=== PATIENT | female | born 1995 | race Caucasian/White ===

== ENCOUNTER 2022-08-14 14:01 | Outpatient (CLI) | payer BC, SELFPAY ==
[2022-08-14 14:31] VITALS: BP 99/76; PULSE 79
[2022-08-14 14:46] VITALS: BP 133/84; PULSE 77
[2022-08-14 15:00] LABS: Basophils Percent Auto 0.2 % (0.2-1.2); Eosinophils Absolute Auto 0.1 K/mm3 (0-0.3); Eosinophils Percent Auto 0.8 % (0-4.4); Hematocrit 33.2 % (37.0-47.0); Hemoglobin 10.7 g/dL (12.0-15.0); Immature Granulocyte Absolute 0.05 K/mm3 (0.00-0.031); Immature Granulocyte Percent A 0.6 % (0-0.5); Lymphocytes Absolute Auto 1.24 K/mm3 (0.9-3.2); Lymphocytes Percent Auto 14.7 % (18.3-44.2); Mean Corpuscular HGB Conc 32.2 g/dl (32-36); Mean Corpuscular Hemoglobin 27.2 pg (26-34); Mean Corpuscular Volume 84.5 fl (80-100); Mean Platelet Volume 12.8 fl (7.4-10.4); Monocytes Absolute Auto 0.5 K/mm3 (0.1-0.6); Monocytes Percent Auto 6.3 % (2.6-8.5); Neutrophils Absolute Auto 6.6 K/mm3 (1.3-6.7); Neutrophils Percent Auto 77.4 % (45.5-73.1); Nucleated Red Blood Cells Perc 0.2 % (0.0-0.2); Platelet Count Result 143 k/mm3 (150-375); Red Blood Count 3.93 M/mm3 (4.2-5.4); Red Cell Distribution Width 13.5 % (11.5-14.5); White Blood Count 8.5 K/mm3 (4.5-10.0)
[2022-08-14 15:09] LABS: Appearance Urine Clear (Clear); Bacteria Urine None Seen /hpf; Bilirubin Urine Negative (Negative); Blood Urine 3+ (Negative); Color Urine Yellow (Yellow); Creatinine Urine 36.7 mg/dL; Glucose Urine UA Negative (Negative); Ketones Urine Negative (Negative); Leukocyte Esterase Ur Negative LEU/UL (NEGATIVE); Nitrate Urine Negative (Negative); Non Pathogenic Casts 0-2; Protein Urine Negative (Negative); Specific Grav Ur 1.008 (1.001-1.035); Squamous Epithelial Cell Urine None seen /hpf (Few); Total Protein Urine Random 22 mg/dL; Urobilinogen Urine 0.2 mg/dL (<2.0); WBC Urine 0-5 /hpf (0-3)
[2022-08-14 15:14] LABS: Alanine Aminotransferase 20 U/L (6-35); Albumin Level 3.6 g/dL (3.5-5.1); Alkaline Phosphatase 134 U/L (38-126); Anion Gap 7 mmol/L (8-16); Aspartate Amino Transferase 25 U/L (14-36); Bilirubin,Total 0.4 mg/dL (0.2-1.3); Blood Urea Nitrogen 13 mg/dL (7-17); Calcium 8.9 mg/dL (8.4-10.2); Carbon Dioxide 23 mmol/L (22-30); Chloride 103 mmol/L (98-107); Estimated Glomerular Filt Rate > 60; Glucose 93 mg/dL (65-110); Potassium 3.9 mmol/L (3.4-5.0); Sodium 133 mmol/L (137-145); Uric Acid 3.1 mg/dL (2.5-7.5)
[2022-08-14 15:26] LABS: Add Urine Microscopic? YES
[2022-08-14 17:10] VITALS: BP 133/84
--- NOTE | 2022-08-15 04:53 | P.PNOB_ITS ---
OB - Triage/Final Diagnosis Visit Information Date of evaluation: 08/14/22 Reason for evaluation: other Comments/Additional reasons for admission: I have assessed the risk for this patient, Susan Harris, and determined that she would benefit from observation care. Evaluation Laboratory results: Laboratory Tests 08/14/22 14:48 WBC 8.5 RBC 3.93 L Hgb 10.7 L Hct 33.2 L MCV 84.5 MCH 27.2 MCHC 32.2 RDW 13.5 Plt Count 143 L MPV 12.8 H Immature Gran % (Auto) 0.6 H Neut % (Auto) 77.4 H Lymph % (Auto) 14.7 L [place] % (Auto) 6.3 Eos % (Auto) 0.8 Baso % (Auto) 0.2 Lymph # (Auto) 1.24 [place] # (Auto) 0.5 Eos # (Auto) 0.1 Baso # (Auto) 0.0 Abs Immat Gran (auto) 0.05 H Absolute Neuts (auto) 6.6 Absolute Nucleated RBC 0.0 Nucleated RBC % 0.2 Sodium 133 L Potassium 3.9 Chloride 103 Carbon Dioxide 23 Anion Gap 7 L BUN 13 Creatinine 0.60 L Estim Creat Clear Calc Not Reportable Estimated GFR > 60 Glucose 93 Uric Acid 3.1 Calcium 8.9 Total Bilirubin 0.4 AST 25 ALT 20 Alkaline Phosphatase 134 H Total Protein 6.0 L Albumin 3.6 Urine Color Yellow Urine Appearance Clear Urine pH 7.0 Ur Specific [place] 1.008 Urine Protein Negative Urine Glucose (UA) Negative Urine Ketones Negative Ur Blood (Man) 3+ H Urine Nitrate Negative Urine Bilirubin Negative Urine Urobilinogen 0.2 Ur Leukocyte Esterase Negative Urine RBC 3-5 H Urine WBC 0-5 Ur Squamous Epith Cells None seen Urine Bacteria None seen Urine Casts 0-2 U Random Total Protein 22 Urine Creatinine 36.7 Protein/Creat Ratio 2 0.60 H Vital signs: Vital Signs - 24 hr 08/14/22 14:31 08/14/22 14:46 08/14/22 17:10 Pulse Rate 79 77 Blood Pressure 99/76 L 133/84 Blood Pressure [Left Arm] 133/84
--- NOTE | 2022-08-17 08:16 | PM.OBPNVD ---
OB - PN: Subj Subjective Date/time seen: 08/17/22 08:16 Patient comments: no complaints and pain well controlled baby status: doing well OB - PN: Obj Data Labs 08/14/22 14:48 08/14/22 14:48 OB - PN A/P Plan day: 1 Plan: routine care Time Spent With Patient Time: Total time spent is greater than 50% in coordination of care (as documented) at patient's floor/unit and/or counseling patient: Time with patient: less than 15 minutes Exam Const: General: cooperative, healthy appearing and comfortable Nutritional Appearance: average body habitus Orientation/consciousness: oriented to person, oriented to place and oriented to time Resp: Effort & Inspection: normal respiratory effort Cardio: Rate: regular rate Rhythm: regular rhythm Heart sounds: S1 normal heart sound present and S2 normal heart sound present GI: Inspection: normal to inspection (fundus firm)
== END 2022-08-14 16:00 | disposition home or self-care (01) ==
LOC: ANHOBOP 14:17 → ANHLDR 14:18
PROVIDERS: Visit Provider Obstetrics & Gynecology
DX: O13.9 Gestational [pregnancy-induced] hypertension without significant proteinuria, unspecified trimester (principal); Z3A.00 Weeks of gestation of pregnancy not specified
CPT/HCPCS: 36415; 59025; 80053; 81001; 82570; 84156; 84550; 85025; 87086; 99199

== ENCOUNTER 2022-08-16 04:58 | Inpatient (IN) | payer BC, SELFPAY ==
[2022-08-16] VITALS (180 sets, daily range): BP systolic 88–143; BP diastolic 48–108; PULSE 65–160; RESP 16–18; TEMP 36.6–37.3; O2SAT 89–100; BMI 28.3
--- NOTE | 2022-08-16 04:58 | LDADM ---
This patient, Susan Harris, was admitted to Labor/Delivery/Recovery 107 on 08/16/22 at 04:58. Plans for labor, pain management and were discussed with patient. Patient/family oriented to hospital policies and general routines including ID bracelet, bed and alarms, visiting hours, pain management, procedures, bathroom and other care routines, personal items, smoking policy, room service/diet and guest tray routines, security routines, and visiting hours. Patient/Family are encouraged to report perceived risks to care and to ask questions if they do not understand what they are told or what they should do. See OBIX for further documentation.
--- NOTE | 2022-08-16 05:23 | PM.IMHP ---
H&P: HPI History of Present Illness Date/Time: 08/16/22 05:23 Chief Complaint: induction of labor at term with gestational hypertension Narrative: this is a 27-year-old primigravida at 38 weeks gestation for induction of labor secondary to elevated blood pressures. She has early ultrasound confirming dates. PIH labs admitted okay but blood pressure has relatively high. COUNT INCLUDES [facility] Family History Family History Other No pertinent family history Social History Social History Substance use: never Spiritual care concerns: No Meds Home Medications and Allergies Home Medications Medication Instructions Recorded Confirmed Type vit no.95-ferrous 1 tablet PO DAILY 08/09/22 08/09/22 History fumarate 28 mg-folic acid 800 mcg tablet () Allergies Allergy/AdvReac Type Severity Reaction Status Date / Time No Known Allergies Allergy Verified 08/09/22 13:59 Exam Const: General: cooperative, healthy appearing, comfortable and well groomed Nutritional Appearance: average body habitus Orientation/consciousness: oriented to person, oriented to place and oriented to time HENMT: Head: normal to inspection Resp: Effort & Inspection: normal respiratory effort Cardio: Rate: regular rate Rhythm: regular rhythm Heart sounds: S1 normal heart sound present and S2 normal heart sound present GI: Inspection: normal to inspection ( Gravid soft uterus) : External Female Exam: normal external appearance Speculum Exam - Vagina: normal appearance of the vagina Speculum Exam - Cervix: normal appearance of the cervix ( cervix 2/50/2. FHTs reassuring) Assessment and Plan Assessment and plan (1) Term : Code(s): Z34.90 - Encounter for supervision of normal , unspecified, unspecified trimester Status: Acute (2) Gestational hypertension: Code(s): O13.9 - Gestational [-induced] hypertension without significant proteinuria, unspecified trimester Status: Acute Plan medical induction labor. Spontaneous vaginal delivery she has an epidural candidate. will recheck PIH labs
--- NOTE | 2022-08-16 06:13 | P.PNAN_ITS ---
Anes - Eval Pre Procedure Procedure: labor epidural Date/Time: 08/16/22 06:13 Surgeon: edy Preop Diagnosis: pain during labor Pre Op Diagnosis: Induction of Labor Patient Data Age: 27 Gender: F Height: Weight: Last Vital Signs Pulse 94 08/16/22 06:01 BP 143/85 H 08/16/22 06:01 Allergies Allergy/AdvReac Type Severity Reaction Status Date / Time No Known Allergies Allergy Verified 08/09/22 13:59 Home Medications Medication Instructions Recorded Confirmed Type vit no.95-ferrous 1 tablet PO DAILY 08/09/22 08/09/22 History fumarate 28 mg-folic acid 800 mcg tablet () Patient hx anesthesia problems: none Family hx anesthesia problems: none Results Review: All pre-operative results and documents have been reviewed as part of the pre- operative evaluation. [facility] Family History Family History Other No pertinent family history Social History Social History Substance use: never Spiritual care concerns: No Exam Day of Procedure 08/16/22 06:13
[2022-08-16 06:20] LABS: Basophils Percent Auto 0.4 % (0.2-1.2); Eosinophils Absolute Auto 0.1 K/mm3 (0-0.3); Eosinophils Percent Auto 1.2 % (0-4.4); Hematocrit 32.3 % (37.0-47.0); Hemoglobin 10.4 g/dL (12.0-15.0); Immature Granulocyte Absolute 0.04 K/mm3 (0.00-0.031); Immature Granulocyte Percent A 0.5 % (0-0.5); Lymphocytes Absolute Auto 1.18 K/mm3 (0.9-3.2); Lymphocytes Percent Auto 15.2 % (18.3-44.2); Mean Corpuscular HGB Conc 32.2 g/dl (32-36); Mean Corpuscular Volume 83.9 fl (80-100); Mean Platelet Volume 13.8 fl (7.4-10.4); Monocytes Absolute Auto 0.6 K/mm3 (0.1-0.6); Monocytes Percent Auto 7.2 % (2.6-8.5); Neutrophils Absolute Auto 5.8 K/mm3 (1.3-6.7); Neutrophils Percent Auto 75.5 % (45.5-73.1); Nucleated Red Blood Cells Perc 0.3 % (0.0-0.2); Platelet Count Result 157 k/mm3 (150-375); Red Blood Count 3.85 M/mm3 (4.2-5.4); Red Cell Distribution Width 13.7 % (11.5-14.5); White Blood Count 7.7 K/mm3 (4.5-10.0)
[2022-08-16] MEDS: LACTATED RINGERS 1,000 ML 125 ML IV CONT (06:21)
[2022-08-16] MEDS: AMPICILLIN 2 GM/NS 100 ML 2 GM/100 ML BAG IVPB (06:22)
[2022-08-16] MEDS: OXYTOCIN 30 UNITS/NS 500 ML 30 UNITS/500 ML BAG 6 UNITS IV CONT (06:25)
[2022-08-16 06:34] LABS: Alanine Aminotransferase 19 U/L (6-35); Albumin Level 3.4 g/dL (3.5-5.1); Alkaline Phosphatase 126 U/L (38-126); Anion Gap 5 mmol/L (8-16); Aspartate Amino Transferase 23 U/L (14-36); Bilirubin,Total 0.3 mg/dL (0.2-1.3); Blood Urea Nitrogen 13 mg/dL (7-17); Carbon Dioxide 22 mmol/L (22-30); Chloride 107 mmol/L (98-107); Estimated Glomerular Filt Rate > 60; Glucose 97 mg/dL (65-110); Potassium 3.9 mmol/L (3.4-5.0); Sodium 134 mmol/L (137-145)
[2022-08-16 06:40] LABS: Uric Acid 2.8 mg/dL (2.5-7.5)
[2022-08-16] MEDS: ONDANSETRON INJ 4 MG/2 ML VIAL IV PUSH ×2 (06:45→13:45)
[2022-08-16 07:55] LABS: Rapid Plasma Reagin Non-Reactive (NonReactive)
[2022-08-16] MEDS: LACTATED RINGERS 1,000 ML 999 ML IV CONT ×3 (08:00→15:16)
[2022-08-16] MEDS: AMPICILLIN 1 GM/NS 50 ML 1 GM/50 ML BAG IVPB ×2 (09:52→13:46)
--- NOTE | 2022-08-16 12:08 | PM.OBPNLAB ---
Pain Control Date/time seen: 08/16/22 12:08 Pain control: tolerating well and epidural Pelvic Exam Dilation (cm): 5 Effacement (%): 100 station: -1 Amniotic membrane status: Leaking
--- NOTE | 2022-08-16 16:01 | PM.OBPNLAB ---
Pain Control Date/time seen: 08/16/22 16:01 Pain control: tolerating well and epidural Pelvic Exam Dilation (cm): 10 Effacement (%): 100 station: -1 Amniotic membrane status: Leaking
--- NOTE | 2022-08-16 16:42 | PM.OBPRVD ---
OB - Delivery Note Procedure Delivery date: 08/16/22 Procedure: mil Events: Gestational Hypertension Induction method: AROM Delivery augmentation: Pitocin Delivery monitor: External FHT and Internal Uterine Route of delivery: Episiotomy description: None Laceration Description: Perineal - 2nd Degree Delivery repair: vicryl Specimen: No Quantitative Blood Loss (ml): 89 Anesthesia type: Epidural Disposition: Floor [place] Baby Date of : 08/16/22 Time of : 16:27 Weeks of gestation at delivery: 38 gender: Male Weight (pounds): 8 Weight (ounces): 9 presentation: vertex position: Right Occiput Anterior Placenta delivery description: Spontaneous Cord Vessel Description: 3 Vessels and Delayed Cord Clamping score one minute: 8 score five minutes: 9
--- NOTE | 2022-08-16 16:45 | PM.DS ---
DS: Admitting Diagnosis Discharge Date 06/18/22 Admitting Diagnosis Gestational hypertension/ term / DS: Discharge Diagnosis Discharge Diagnosis (1) Gestational hypertension: Code(s): O13.9 - Gestational [-induced] hypertension without significant proteinuria, unspecified trimester Status: Acute (2) Term : Code(s): Z34.90 - Encounter for supervision of normal , unspecified, unspecified trimester Status: Acute DS: Summary Hospital Course Reason for hospitalization: patient was admitted for induction of labor secondary to elevated blood pressures at 38 weeks Hospital Course: she underwent successful spontaneous vaginal delivery 08/16/2022. Her hospital course was unremarkable. She remained afebrile. She was up, voiding the difficulty, ambulating, generally without complaints. Time Spent with Patient Time attestation: Total time spent providing and/or coordinating discharge services: Exam Const: General: cooperative, healthy appearing, comfortable and well groomed Nutritional Appearance: average body habitus Orientation/consciousness: oriented to person, oriented to place and oriented to time Resp: Effort & Inspection: normal respiratory effort Cardio: Rate: regular rate Rhythm: regular rhythm Heart sounds: S1 normal heart sound present and S2 normal heart sound present GI: Inspection: normal to inspection ( Fundus firm below umbilicus) DS: Data Data Completed and Pending Labs on day of discharge: Labs from last 24 hours 08/16/22 05:44 WBC 7.7 RBC 3.85 L Hgb 10.4 L Hct 32.3 L MCV 83.9 MCH 27.0 MCHC 32.2 RDW 13.7 Plt Count 157 MPV 13.8 H Immature Gran % (Auto) 0.5 Neut % (Auto) 75.5 H Lymph % (Auto) 15.2 L [place] % (Auto) 7.2 Eos % (Auto) 1.2 Baso % (Auto) 0.4 Lymph # (Auto) 1.18 [place] # (Auto) 0.6 Eos # (Auto) 0.1 Baso # (Auto) 0.0 Abs Immat Gran (auto) 0.04 H Absolute Neuts (auto) 5.8 Absolute Nucleated RBC 0.0 Nucleated RBC % 0.3 H % Immature Plt Fraction 20.0 H Sodium 134 L Potassium 3.9 Chloride 107 Carbon Dioxide 22 Anion Gap 5 L BUN 13 Creatinine 0.60 L Estim Creat Clear Calc Not Reportable Estimated GFR > 60 Glucose 97 Uric Acid 2.8 Calcium 9.0 Total Bilirubin 0.3 AST 23 ALT 19 Alkaline Phosphatase 126 Total Protein 6.0 L Albumin 3.4 L RPR Non-reactive Blood Type B Positive Antibody Screen Negative Discharge Plan Discharge Attending physician on discharge: Mati Rose Discharging Clinician: Mati Rose Patient Disposition: Home, Self-Care Activity: may shower and pelvic rest Diet: heart healthy Wound Care Instructions: follow printed instructions Stand Alone Forms: General Discharge Information Follow-up/Referrals: Mati Rose MD [Physician] - 6 Weeks Discharge Medications: New ibuprofen 600 mg tablet 600 mg PO Q6H PRN (Reason: cramps) Qty: 30 0RF ferrous sulfate 325 mg (65 mg iron) tablet 325 mg PO DAILY Qty: 30 0RF Continued PNV cmb#95-ferrous fumarate-FA [] 28 mg iron- 800 mcg Tablet 1 tablet PO DAILY Date of admission: 08/16/22 04:58 Primary Care Provider: PHYSICIAN,CLOTH WEIGHER Admitting Provider: Mati Rose Attending physician on admission: Mati Rose Condition: Stable
[2022-08-16] MEDS: OXYTOCIN 30 UNITS/NS 500 ML 30 UNITS/500 ML BAG 125 UNITS IV CONT (17:02)
[2022-08-16] MEDS: IBUPROFEN 600 MG TABLET PO (18:15)
--- NOTE | 2022-08-16 19:39 | PC.NURSE ---
Patient transferred to post room #286 via wheelchair. Support person present. Oriented to unit, room, information board, rooming in, admission packet and security measures. Patient verbalizes understanding.
[2022-08-16] MEDS: ACETAMINOPHEN 325 MG TABLET 650 MG PO (23:33)
[2022-08-17] MEDS: IBUPROFEN 600 MG TABLET PO ×3 (04:18→16:48)
[2022-08-17 04:54] LABS: Hematocrit 29.4 % (37.0-47.0); Hemoglobin 9.4 g/dL (12.0-15.0)
--- NOTE | 2022-08-17 07:24 | PM.OBPNVD ---
OB - PN: Subj Subjective Date/time seen: 08/17/22 07:24 Patient comments: no complaints and pain well controlled baby status: doing well OB - PN: Obj Data Labs 08/17/22 04:21 08/16/22 05:44 Labs: Laboratory Results - last 24 hr 08/16/22 08/17/22 05:44 04:21 Hgb 9.4 L Hct 29.4 L RPR Non-reactive Blood Type B Positive Antibody Screen Negative OB - PN A/P Plan day: 1 Plan: routine care Time Spent With Patient Time: Total time spent is greater than 50% in coordination of care (as documented) at patient's floor/unit and/or counseling patient: Time with patient: less than 15 minutes Exam Const: General: cooperative, healthy appearing and comfortable Nutritional Appearance: average body habitus Orientation/consciousness: oriented to person, oriented to place and oriented to time HENMT: Head: normal to inspection Resp: Effort & Inspection: normal respiratory effort Cardio: Rate: regular rate Rhythm: regular rhythm Heart sounds: S1 normal heart sound present and S2 normal heart sound present GI: Inspection: normal to inspection (Fundus firm below the umbilicus)
[2022-08-17 08:45] VITALS: BP 115/65; PULSE 81; RESP 18; TEMP 36.8; O2SAT 100
--- NOTE | 2022-08-17 09:52 | WPDANLDPN2 ---
Anes-Prog Note L&D Date/Time: 08/17/22 09:52 Comfortable throughout: labor and delivery Neuraxial method: epidural Epidural/Spinal procedure site: clean & non-tender Neuro status: Neuro function grossly intact. Cardiovascular status: normal Respiratory status: normal Airway patency: baseline Mental status: baseline Post-Op hydration status: normal Vital Signs: Last Vital Signs Temp 36.7 C 08/16/22 23:30 Pulse 82 08/16/22 23:30 Resp 16 08/16/22 23:30 BP 111/63 08/16/22 23:30 Pulse Ox 97 08/16/22 23:30 O2 Del Method Room Air 08/16/22 23:30 Pain score (VAS): 04/10 I/O: Intake & Output 08/16/22 08/17/22 08/17/22 23:59 07:59 15:59 Intake Total 990 Output Total 989 Balance 1 Post-procedural complaints: none Patient feedback: Patient satisfied with anesthetic care.
[2022-08-17] MEDS: POLYSACCHARIDE IRON COMPLEX 150 MG CAPSULE PO ×2 (10:40→16:49)
[2022-08-17] MEDS: MULTIVIT/MIN/PREN/FOL AC/IRON TABLET 1 TAB PO (10:40)
[2022-08-17] MEDS: DOCUSATE SODIUM 100 MG CAPSULE PO ×2 (10:40→16:48)
[2022-08-17 11:47] VITALS: BP 114/62; PULSE 81; RESP 16; TEMP 36.9; O2SAT 99
[2022-08-17 20:19] VITALS: BP 139/75; PULSE 76; RESP 18; TEMP 36.5; O2SAT 96
[2022-08-18 08:00] VITALS: BP 119/84; PULSE 82; RESP 16; TEMP 36.8; O2SAT 99
[2022-08-18] MEDS: POLYSACCHARIDE IRON COMPLEX 150 MG CAPSULE PO (08:38)
[2022-08-18] MEDS: MULTIVIT/MIN/PREN/FOL AC/IRON TABLET 1 TAB PO (08:39)
[2022-08-18] MEDS: DOCUSATE SODIUM 100 MG CAPSULE PO (08:39)
--- NOTE | 2022-08-18 08:40 | PM.OBPNVD ---
OB - PN: Subj Subjective Date/time seen: 08/18/22 08:40 Narrative: Pain OK. Would like to go home. OB - PN: Obj Data Labs 08/17/22 04:21 08/16/22 05:44 OB - PN A/P Plan Comments: A: PPD#2, doing well. P: Home to f/u 6 weeks. Exam Psych: Other: AVSS ABD soft, nontender, fundus firm EXT nontender
[2022-08-18] MEDS: WITCH HAZEL 40 PADS 1 PAD TOPICAL (08:43)
[2022-08-20 08:16] VITALS: BP 129/83; PULSE 85; RESP 18; TEMP 37.1; O2SAT 100
== END 2022-08-18 12:15 | disposition home or self-care (01) | DRG 807 ==
LOC: ANHLDR 16:48 → ANHOB2 08-17 08:56 → ANHLDR 08-21 07:16 → ANHOB2 08-21 07:16
PROVIDERS: Admitting Provider Obstetrics & Gynecology; Visit Provider Obstetrics & Gynecology
DX: O13.4 Gestational [pregnancy-induced] hypertension without significant proteinuria, complicating childbirth (principal); Z37.0 Single live birth; O70.1 Second degree perineal laceration during delivery; O99.824 Streptococcus B carrier state complicating childbirth; Z3A.38 38 weeks gestation of pregnancy
CPT/HCPCS: 36415; 80053; 84550; 85014; 85018; 85025; 85055; 86592; 86850; 86900; 86901; A9270; J0290; J2405; J2590; J2795; J7120

== ENCOUNTER 2024-12-21 21:28 | Emergency (ER) | payer BC, SELFPAY ==
--- NOTE | ~2024-12-21 | XR_ITS ---
Examination: XR chest 2V Clinical History: fever Comparison: None Technique: PA and Lateral Findings: Cardiomediastinal silhouette normal size and configuration. Lungs clear. No acute bony abnormality. IMPRESSION: 1. No acute cardiopulmonary findings. Reviewed, dictated and finalized at location R.
[2024-12-21 21:30] VITALS: BP 140/81; PULSE 102; RESP 18; TEMP 36.8; O2SAT 100
--- OUTSIDE RECORDS SUMMARY | 2024-12-21 21:30 | XMS_ITS | Clinical Summary ---
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 Name Role Phone No, Physician Primary Care Provider [phone] Allergies No known active allergies Medications sertraline (ZOLOFT) 25 mg tabletIndicatio ns:Anxiety with Depression Take 1 tablet (25 mg total) by mouth early childhood teacher before breakfast Active multivitamin tabletIndicatio ns:Vitamin Deficiency Prevention Take 1 tablet by mouth early childhood teacher before breakfast Active ALPRAZolam (Xanax) 0.5 mg tablet Take 1 tablet (0.5 mg total) by mouth as needed for anxiety (PRN pre-procedure) 2 tablet Active Active Problems Problem Noted Date Diagnosed Date 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 Operating Room [address] [address] [place] [id number] Pricilla Mohan CRNA 12/14/2024 11:01 AM CDT - 12/14/2024 11:46 AM CDT Surgery [facility] Operating Room [address] [address] [place] [id number] Savanah Renteria MD awake KTP laser 12/14/2024 9:44 AM CDT - 12/14/2024 11:44 AM CDT Hospital Encounter [facility] Operating Room [address] [address] [place] [id number] Savanah Renteria MD Recurrent respiratory papillomatosis (Primary Dx) Discharge Disposition: Discharge to home or self care 11/19/2024 Orders Only [facility] Operating Room [address] [address] [place] [id number] Savanah Renteria MD 11/19/2024 Telephone [facility] [address] [place] [id number] Alexey LaverneMS carey 11/18/2024 11:00 AM CDT Therapy [facility]ol[facility]ology [address] [place] [address] Medical [address] [place] [phone] Cheyanne Pacheco SLP Laryngeal papillomatosis (Primary Dx); Anterior glottic web 11/18/2024 11:00 AM CDT Office Visit [facility] ENT [address] [place] [address] Medical [address] [place] [phone] Savanah Renteria MD Laryngeal papillomatosis (Primary Dx); Anterior glottic web from Last 3 Months Surgical History Surgery Date Site/Laterality Comments ADENOIDECTOMY 04/01/2004 - 03/31/2005 tonsils CHOLECYSTECTOMY 04/01/2016 - 03/31/2017 LARYNGOSCOPY multiple every 6months to 1 year. Medical History Medical History Date Comments PONV (postoperative nausea and vomiting) Family History Medical History Relation Name Comments Diabetes Paternal Grandmother Hamida Caicedo Anesthesia problems Neg Hx Relation Name Status Comments Paternal Grandmother Hamida Caicedo Social History Tobacco Use Types Packs/Day Years Used Date Smoking Tobacco: Never Passive Smoke Exposure: Never Smokeless Tobacco: Never Tobacco Cessation:Counseling Given: Not Answered Alcohol Use Standard Drinks/Week Comments Yes 1 (1 standard drink = 0.6 oz pur e alcohol) AUDIT-C Answer Date Recorded Q1: How often do you have a drink containing alc ohol? 2-4 times a month 12/14/2024 Q2: How many drinks containi ng alcohol do you have on a typical day when you are drinking? 1 or 2 12/14/2024 Q3: How often do you have si x or more drinks on one occasion? Never 12/14/2024 Personal Safety Answer Date Recorded Have you ever been in or are you currently in a harmful physical or emotional relationship or is someone making you feel afraid or unsafe? Denies 12/14/2024 Comments No Sex and Gender Information Value Date Recorded Sex Assigned at Not on file Legal Sex Female 8:56 PM [employer] Gender Identity Female 04/22/2024 6:57 AM [employer] Sexual Orientation Not on file Obstetrics History Last Filed Vital Signs Vital Sign Reading Time Taken Comments Blood Pressure 132/82 12/14/2024 11:30 AM CDT Pulse 82 12/14/2024 11:25 AM CDT Temperature 36.5 C (97.7 F) 12/14/2024 11:30 AM CDT Respiratory Rate 0 12/14/2024 11:30 AM CDT Oxygen Saturation 94% 12/14/2024 11:25 AM CDT Inhaled Oxygen Concentration - - Weight 68 kg (150 lb) 12/14/2024 9:50 AM CDT Height 170.2 cm (5' 7) 12/14/2024 9:50 AM CDT Body Mass Index 23.49 12/14/2024 9:50 AM CDT Plan of Treatment Health Maintenance Due Date Last Done Comments Cervical Cancer Screening 1993 Depression Screening 1993 DTaP/Tdap/Td Vaccine (1 - Tdap) 2004 Varicella Vaccines (1 of 2 - 13+ 2-dose series) 2006 Hepatitis B Screening 2011 Regular Well Visit/Exam 18-64 2011 HPV Vaccines (1 - 3-dose SCD M series) 2020 Influenza Vaccine (#1) 2024 Hepatitis C Screening Completed 01/07/2014 Pneumococcal vaccine <65 Aged Out No longer eligible based on patient's age to complete this topic Goals Goal Patient Goal Type Associated Problems Recent Progress Patient-Stated? Author Autogenera narendra Goal Care Plan Autogenerated Problem No Keri Calderon RN Procedures Procedure Name Priority Date/Time Associated Diagnosis Comments LASER KTP 12/14/2024 11:12 AM CDT Recurrent respiratory papillomatosis Case Notes KTP laser, channeled scope Special Needs KTP laser, channeled scope SERUM HEPATITIS PANEL Routine 01/07/2014 7:12 AM CDT from Last 3 Months or Most Recently Relevant to Health Maintenance Results * Serum Hepatitis panel (01/07/2014 7:12 AM CDT) HBV surface ag Negative NEG HISTO RICAL RESULTS HCV ab Negative NEG HISTORICAL RESULTS Comment: Interpretive Data If confirmation is required, call Laboratory Customer Service to request sample to be sent to [facility] for Hepatitis C Virus (HCV) RNA Detection and Quantitation by Real-Time Reverse Plasma Center Technician-PCR (RT-PCR). Current interpretive data was last revised on 2011 HBV core ab, IgM Negative NEG HIS TORICAL RESULTS Comment: Interpretive Data If test is reported as Equivocal, new sample should be drawn for testing. Current interpretive data was last revised on 2007. HAV ab, IgM Negative NEG HISTORIC AL RESULTS Comment: Interpretive Data If test is reported as Equivocal, new sample should be drawn in two weeks for testing. Current interpretive data was last revised on 2007. 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
[2024-12-21 21:34] VITALS: RESP 17; O2SAT 98
[2024-12-21 21:35] VITALS: PULSE 75; RESP 17; TEMP 37.2; O2SAT 98
[2024-12-21 22:42] LABS: BEDSIDEPREGUCG Negative (Negative)
[2024-12-21 22:54] LABS: Hematocrit 37.1 % (37.0-47.0); Hemoglobin 12.7 g/dL (12.0-15.0); Immature Granulocyte Percent A 0.2 % (0-0.5); Lymphocytes Absolute Auto 1.07 K/mm3 (0.9-3.2); Mean Corpuscular HGB Conc 34.2 g/dl (32-36); Mean Corpuscular Hemoglobin 29.2 pg (26-34); Mean Corpuscular Volume 85.3 fl (80-100); Nucleated Red Blood Cells Absolute Auto 0.000 K/mm3 (0.0-0.012); Nucleated Red Blood Cells Perc 0.0 % (0.0-0.2); Platelet Count Result 210 k/mm3 (150-375); Red Blood Count 4.35 M/mm3 (4.2-5.4); White Blood Count 5.3 K/mm3 (4.5-10.0)
[2024-12-21 23:02] LABS: Add Urine Microscopic? YES; Appearance Urine Cloudy (Clear); Glucose Urine UA Negative (Negative); Leukocyte Esterase Ur 1+ LEU/UL (Negative); Nitrate Urine Negative (Negative); Non Pathogenic Casts 0-2; Specific Grav Ur 1.025 (1.001-1.035)
[2024-12-21 23:06] LABS: Alanine Aminotransferase 31 U/L (6-35); Albumin Level 4.3 g/dL (3.5-5.1); Alkaline Phosphatase 100 U/L (38-126); Anion Gap 9 mmol/L (4-12); Aspartate Amino Transferase 32 U/L (14-36); Bilirubin,Total 0.4 mg/dL (0.2-1.3); Blood Urea Nitrogen 13 mg/dL (7-17); Calcium 9.0 mg/dL (8.4-10.2); Carbon Dioxide 24 mmol/L (22-30); Chloride 104 mmol/L (98-107); Estimated CRCL calculation 100 ml/min; Estimated Glomerular Filt Rate > 60; Glucose 127 mg/dL (65-110); Potassium 3.5 mmol/L (3.4-5.0); Sodium 137 mmol/L (137-145); Total Protein 7.5 g/dL (6.3-8.2)
[2024-12-21 23:33] LABS: Influenza A QL RT-PCR Negative (Negative); Influenza B QL RT-PCR Negative (Negative); RSV RNA, RT-PCR Negative (Negative); SARS-CoV-2 RNA PCR Negative (Negative)
--- NOTE | 2024-12-21 23:46 | ED_ITS ---
HPI - Fever General Chief Complaint: Fever Stated Complaint: fever starting Time Seen by Provider: 12/21/24 22:21 Source: patient Mode of arrival: ambulatory Limitations: no limitations History of Present Illness HPI Narrative: This is a 29-year-old female that presents emergency department for fevers. Reports last Saturday she had a laser procedure for vocal cord polyps. Reports having low-grade fevers since. She had a fever of 101 today which concerned her and prompted her to be seen. Denies cough, congestion, sore throat, abdominal pain, vomiting, diarrhea. Related Data Home Medications ?Medication ?Instructions ?Recorded ?Confirmed ?Last Taken ?Type vit no.95-ferrous 1 tablet PO DAILY 08/09/22 08/16/22 08/15/22 History fumarate 28 mg-folic acid 800 mcg tablet () Allergies Allergy/AdvReac Type Severity Reaction Status Date / Time No Known Allergies Allergy Verified 12/21/24 21:33 Review of Systems 2 Review of Systems: All systems reviewed & are unremarkable except as noted in HPI and below PMFSH Family History Family History Other No pertinent family history Social History Social History Smoking status: Never smoker Second hand tobacco smoke exposure: No Substance use: never Lack of Transportation: No Lack of Food: Never True Current Housing: I Have Housing Concerned About Future Housing: No Difficulty Paying Gas/Electric Bills: No Difficulty Paying for Meds: No Currently Unemployed: No Education: High School Diploma/GED Difficulty w/ Childcare or Family Care: No Spiritual care concerns: No Exam 2 Narrative: GENERAL: Well-appearing, well-nourished, and in no acute distress. HEAD: Normocephalic, atraumatic. EYES: EOMI. ENT: Nares clear, no rhinorrhea or epistaxis. Mucous membranes moist. Oropharynx without tonsillar hypertrophy exudate or other lesions. Bilateral TMs pearly floyd non-bulging NECK: Supple. No adenopathy or masses. CHEST: Clear to auscultation. No respiratory distress. No wheezes rales or rhonchi HEART: Regular rate and rhythm. No murmur heard. Normal peripheral pulses. EXTREMITIES: Normal range of motion. No edema. SKIN: Warm, dry, no rash. NEURO: No focal deficits. Alert and oriented x3. PSYCH: Normal mood and affect Course Vital Signs Vital signs: Vital Signs Temperature 98.2 F 12/21/24 21:30 Pulse Rate 102 H 12/21/24 21:30 Respiratory Rate 18 12/21/24 21:30 Blood Pressure 140/81 12/21/24 21:30 Pulse Oximetry 100 12/21/24 21:30 Oxygen Delivery Room Air 12/21/24 21:30 Temperature 99.0 F 12/21/24 21:35 Pulse Rate 75 12/21/24 21:35 Respiratory Rate 17 12/21/24 21:35 Blood Pressure 140/81 12/21/24 21:30 Pulse Oximetry 98 12/21/24 21:35 Oxygen Delivery Room Air 12/21/24 21:30 MDM - Fever MDM Narrative Medical decision making narrative: Patient presents to the emergency department for fevers since a recent laser procedure for vocal cord polyps. She is afebrile in the ER and nontoxic appearing. Mildly tachycardic upon arrival, this normalized without intervention. Cbc without leukocytosis. Metabolic panel without concerning findings. Influenza, RSV and COVID screens are negative. Chest x-ray without acute cardiopulmonary abnormality. Urine with evidence of infection. This will be sent for culture. Patient will be started on oral antibiotics. She is to follow up with primary provider. She was given warnings to return to the ER Differential Diagnosis Differential diagnosis: Likely fever of unknown origin, community acquired pneumonia, pyelonephritis, viral infection and influenza Lab Data Attestation: I reviewed the patient's lab results. 12/21/24 22:37 12/21/24 22:37 Labs: Lab Results 12/21/24 12/21/24 Range/Units 22:37 22:40 WBC 5.3 (4.5-10.0) K/mm3 RBC 4.35 (4.2-5.4) M/mm3 Hgb 12.7 D (12.0-15.0) g/dL Hct 37.1 (37.0-47.0) % MCV 85.3 (80-100) fl MCH 29.2 (26-34) pg MCHC 34.2 (32-36) g/dl RDW 11.4 L (11.5-14.5) % Plt Count 210 (150-375) k/mm3 MPV 10.1 (7.4-10.4) fl Immature Gran % (Auto) 0.2 (0-0.5) % Neut % (Auto) 69.0 (45.5-73.1) % Lymph % (Auto) 20.3 (18.3-44.2) % [place] % (Auto) 9.7 H (2.6-8.5) % Eos % (Auto) 0.2 (0-4.4) % Baso % (Auto) 0.6 (0.2-1.2) % Lymph # (Auto) 1.07 (0.9-3.2) K/mm3 [place] # (Auto) 0.5 (0.1-0.6) K/mm3 Eos # (Auto) 0.0 (0-0.3) K/mm3 Baso # (Auto) 0.0 (0.0-0.1) K/mm3 Abs Immat Gran (auto) 0.01 (0.00-0.031) K/mm3 Absolute Neuts (auto) 3.7 (1.3-6.7) K/mm3 Absolute Nucleated RBC 0.000 (0.0-0.012) K/mm3 Nucleated RBC % 0.0 (0.0-0.2) % Sodium 137 (137-145) mmol/L Potassium 3.5 (3.4-5.0) mmol/L Chloride 104 (98-107) mmol/L Carbon Dioxide 24 (22-30) mmol/L Anion Gap 9 (4-12) mmol/L BUN 13 (7-17) mg/dL Creatinine 0.68 L (0.7-1.0) mg/dL Estim Creat Clear Calc 100 ml/min Estimated GFR > 60 (59 - ) Glucose 127 H (65-110) mg/dL Calcium 9.0 (8.4-10.2) mg/dL Total Bilirubin 0.4 (0.2-1.3) mg/dL AST 32 (14-36) U/L ALT 31 (6-35) U/L Alkaline Phosphatase 100 (38-126) U/L Total Protein 7.5 (6.3-8.2) g/dL Albumin 4.3 (3.5-5.1) g/dL Urine Color Yellow (Yellow) Urine Appearance Cloudy H (Clear) Urine pH 6.5 (5.0-9.0) Ur Specific [place] 1.025 (1.001-1.035) Urine Protein Negative (Negative) mg/dL Urine Glucose (UA) Negative (Negative) mg/dL Urine Ketones Negative (Negative) mg/dL Ur Blood (Man) Negative (Negative) Urine Nitrate Negative (Negative) Urine Bilirubin Negative (Negative) Urine Urobilinogen 1.0 (<2.0) mg/dL Leukocyte Esterase Rfl 1+ H (Negative) ONIEL/UL Urine RBC 0-2 (0-2) /hpf Urine WBC 11-20 H (0-3) /hpf Ur Squamous Epith Cells Moderate (Few) /hpf Urine Bacteria 3+ H /hpf Urine Casts 0-2 POC Urine HCG, Qual Negative (Negative) Influenza A (RT-PCR) Negative (Negative) Influenza B (RT-PCR) Negative (Negative) RSV (RT-PCR) Negative (Negative) SARS-CoV-2 RNA (RT-PCR) Negative (Negative) Imaging Data My impression: Chest x-ray: No acute cardiopulmonary abnormality Critical Care Time Critical Care Time Critical Care Time: No Discharge Plan Discharge Clinical Impression: Acute UTI Fever Qualifiers: Fever type: unspecified Qualified Code(s): R50.9 - Fever, unspecified Patient Disposition: Home Condition: Stable Instructions: Antibiotic Form, Urinary Tract Infection in Women (ED) Additional Instructions: Return to the emergency department if you experience fever >101, chest pain, shortness of breath, abdominal pain with nausea and vomiting, you are unable to keep down liquids or solids, or any other symptoms that are concerning to you. Tylenol or Ibuprofen as needed for pain/fever. Take oral antibiotic as prescribed Follow up with primary care doctor Patient Language: Finnish Prescriptions: New cephalexin 500 mg capsule 500 mg PO Q12H 5 Days Qty: 10 0RF No Action PNV no.95-ferrous fumarate-FA [] 28 mg iron- 800 mcg Tablet 1 tablet PO DAILY ibuprofen 600 mg tablet 600 mg PO Q6H PRN (Reason: cramps) Qty: 30 0RF ferrous sulfate 325 mg (65 mg iron) tablet 325 mg PO DAILY Qty: 30 0RF Follow-up/Referrals: Lyle Florez MD [Physician, Family Practice] PHYSICIAN,[facility] [employer] [Primary Care Provider, Internal Medicine]
[2024-12-21 23:56] VITALS: BP 131/73; PULSE 80; RESP 18; O2SAT 99
== END 2024-12-21 23:58 | disposition home or self-care (01) ==
PROVIDERS: Emergency Provider Physician Assistant
DX: N39.0 Urinary tract infection, site not specified (principal); R50.9 Fever, unspecified; Z20.822 Contact with and (suspected) exposure to COVID-19
CPT/HCPCS: 36415; 71046; 80053; 81001; 81025; 85025; 87637; 99283